=== PATIENT | female | born 1995 | race American Indian/Alaskan Native ===

== ENCOUNTER 2020-12-21 11:46 | Emergency (ER) | payer SELFPAY ==
--- NOTE | 2020-12-21 13:45 | Emergency Department Report ---
Chief Complaint: Upper Respiratory Infection Stated Complaint: COUGHING UP BLOOD Time Seen by Provider: 12/21/20 13:42 - HPI History of Present Illness: 25-year-old healthy female who "caught a cold from her son". Patient has nasal congestion blood tinged sputum. She denies fever shortness of breath chills loss of taste or smell. - Exam Vital Signs: Vital Signs 12/21/20 11:58 Temperature 98.2 F Pulse Rate 85 Respiratory 14 Rate Blood Pressure 142/82 O2 Sat by Pulse 97 Oximetry Physical Exam: Patient appears well clear breath sounds stable vital signs no oropharyngeal le sions. MSE screening note: Focused history and physical exam performed. Due to findings the following was ordered: Medical screening exam performed completed. Patient has URI. Patient does not have a life or limb threatening condition which needs further evaluation or treatment. Recommended supportive [id number] treatment care. Patient was educated on the symptoms and risk of COVID-19 infection. ED Disposition for MSE Clinical Impression: Upper respiratory infection Disposition: Z- MED SCREENING EXAM-LEFT Is pt being admited?: No Does the pt Need Aspirin: No Condition: Stable Instructions: Viral Respiratory Infection, Dobk-Yr-Asne Referrals: KAREN TATUM MD [Staff Physician] - 3-5 Days
== END 2020-12-21 14:25 | disposition left against medical advice (07) ==
LOC: ED 11:46

== ENCOUNTER 2021-08-11 14:00 | Emergency (ER) | payer SELFPAY | END 2021-08-11 15:00 | disposition left against medical advice (07) | LOC: ED 14:00 | DX: R10.9 Unspecified abdominal pain (principal); Z53.21 Procedure and treatment not carried out due to patient leaving prior to being seen by health care provider ==

== ENCOUNTER 2022-02-23 09:58 | Emergency (ER) | payer MEDICAID ==
[2022-02-23 10:20] VITALS: BP 129/79
--- NOTE | 2022-02-23 12:23 | Emergency Department Report ---
Chief Complaint: Skin/Abscess/Foreign Body Stated Complaint: STD TEST/LUMP/ARM Time Seen by Provider: 02/23/22 12:22 - HPI History of Present Illness: TO ER FOR ROUTINE STI TESTING NO SYMPTOMS LMP NOW - ROS Review of Systems: NO COMPLAINTS - Exam Vital Signs: Vital Signs 02/23/22 10:17 Pulse Rate 69 Respiratory 18 Rate Blood Pressure 129/79 O2 Sat by Pulse 100 Oximetry Physical Exam: A/O S1S2 BRUISE R BICEPT AREA ABD SNT NO CVA TENDERNESS MSE screening note: Focused history and physical exam performed. Due to findings the following was ordered: NON MED EMERGENCY WITH NO LIFE THREAT DC HOME WITH PCP FOLLOW UP Patient discussed with doctor:: MANJIT GARCIA ED Disposition for MSE Clinical Impression: Concern about STD in female without diagnosis Disposition: 01 HOME / SELF CARE / HOMELESS Is pt being admited?: No Does the pt Need Aspirin: No Condition: Stable Additional Instructions: [facility] DEPT Referrals: KAREN TATUM MD [Staff Physician] - 3-5 Days Forms: Work/School Release Form(ED) Time of Disposition: 12:22
== END 2022-02-23 16:00 | disposition home or self-care (01) ==
LOC: ED 09:58
DX: Z20.2 Contact with and (suspected) exposure to infections with a predominantly sexual mode of transmission (principal)
CPT/HCPCS: 99282